=== PATIENT | female | born 1960 | race Caucasian/White ===

== ENCOUNTER 2017-06-07 16:50 | Emergency (ER) | payer MEDICARE, MEDICAID ==
[2017-06-07] MEDS ORDERED: cloNIDine 0.1 MG Tab PO ONE ×2 (16:54→17:28)
[2017-06-07] MEDS ORDERED: Ketorolac 60 MG/2 ML SDV IM ONE (17:28)
[2017-06-07] MEDS ORDERED: Ibuprofen 600 MG Tab PO ONE (17:42)
--- NOTE | 2017-06-07 19:46 | EDM.PDOC ---
ED HPI GENERAL MEDICAL PROBLEM - General Chief Complaint: Genitourinary Problem Stated Complaint: PASSED KIDNEY STONES AND NOT FEELING GOOD SI Time Seen by Provider: 06/07/17 17:00 Source of Information: Reports: Patient, Family History Limitations: Reports: No Limitations - History of Present Illness INITIAL COMMENTS - FREE TEXT/NARRATIVE: 56 years old w f -smoker-came to the ed because of low back pain and "not feeling right" Her BP was 177/101 on arrival. Pt did not take meds for 6 months because she moved to this area and did not find a PMD yet. No trauma. No N/V/D or dizziness or any other acute medical issues. Pt took lisinopril (dose) 6 months ago. Onset: Unknown/Unsure Onset Date: 05/23/17 Onset Time: 07:00 Duration: Week(s): Location: Reports: Back, Generalized Quality: Reports: Ache, Dull, Same as Previous Episode Improves with: Reports: Cold Therapy, Medication, Rest Worsens with: Reports: Movement Context: Reports: Lifting Associated Symptoms: Reports: No Other Symptoms Left Flank Pain Score (Numeric/FACES): 8 - Related Data Allergies Allergy/AdvReac Type Severity Reaction Status Date / Time Iodone Allergy Hives Uncoded 06/07/17 19:01 morphine Allergy Other Uncoded 06/07/17 19:01 Home Meds: Home Meds cloNIDine HCl [Clonidine HCl ER] 0.1 mg PO DAILY #10 tab.er.12h 06/07/17 [Rx] Past Medical History Cardiovascular History: Reports: Other (See Below) Other Cardiovascular History: Experiences chest pain on and off. Respiratory History: Reports: Other (See Below) Other Respiratory History: Long time smoker. Gastrointestinal History: Reports: Cirrhosis, Other (See Below) Other Gastrointestinal History: Has REN (non-alcoholic cirrhosis). Genitourinary History: Reports: Other (See Below) Other Genitourinary History: Has had kidney stones, and reconstructive surgery. 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 Psychiatric History: Reports: Anxiety, Other (See Below) Other Psychiatric History: On medications. Endocrine/Metabolic History: Reports: Diabetes, Type II Social & Family History - Tobacco Use Smoking Status *Q: Current Every Day Smoker Years of Tobacco use: 40 Packs/Tins Daily: 1 Used Tobacco, but Quit: No Second Hand Smoke Exposure: Yes - Caffeine Use Caffeine Use: Reports: Coffee - Recreational Drug Use Recreational Drug Use: No ED ROS GENERAL - Review of Systems Review Of Systems: See Below Constitutional: Reports: Other (not feeling "right") HEENT: Reports: No Symptoms Respiratory: Reports: No Symptoms, Shortness of Breath Cardiovascular: Reports: No Symptoms Endocrine: Reports: No Symptoms GI/Abdominal: Reports: No Symptoms : Reports: Dysuria Musculoskeletal: Reports: Back Pain Skin: Reports: No Symptoms Neurological: Reports: No Symptoms Psychiatric: Reports: No Symptoms Hematologic/Lymphatic: Reports: No Symptoms Immunologic: Reports: No Symptoms ED EXAM, RENAL/ - Physical Exam Exam: See Below Exam Limited By: No Limitations General Appearance: Alert, WD/WN, Mild Distress, Obese Eye Exam: Bilateral Eye: Normal Inspection Ears: Normal External Exam Nose: Normal Inspection, Normal Mucosa Throat/Mouth: Normal Inspection, Normal Lips Head: Atraumatic, Normocephalic Neck: Normal Inspection, Supple, Non-Tender Respiratory/Chest: No Respiratory Distress, Lungs Clear, Normal Breath Sounds Cardiovascular: Normal Peripheral Pulses, Regular Rate, Rhythm, No Edema GI/Abdominal: Normal Bowel Sounds, Soft, Non-Tender, No Organomegaly (Female) Exam: Deferred Rectal (Female) Exam: Deferred Back Exam: Normal Inspection, Full Range of Motion, Muscle Spasm Extremities: Normal Inspection, Normal Range of Motion, Non-Tender, No Pedal Edema Neurological: Alert, Oriented, CN II-XII Intact, Normal Cognition, Normal Gait Psychiatric: Normal Affect, Normal Mood Skin Exam: Warm, Dry, Intact, Normal Color, No Rash Lymphatic: No Adenopathy Course - Vital Signs Text/Narrative:: 56 years old w f -smoker-came to the ed because of low back pain and "not feeling right" Her BP was 177/101, pulse 115 on arrival. Pt did not take meds for 6 months because she moved to this area and did not find a PMD yet. No trauma. No N/V/D or dizziness or any other acute medical issues. PE: Obese 57 y.o.w.f. with back pain (parasinal) , no flank pain. Labs: CBC, BMP and UA nl Imaging: Not indicated. Impression: HTN, Noncompliance, low back pain. Tx: Clonididne, Ice to lower back, Toradol I.V Reexam: Improved BP was 133 /97b on D/C, pt felt better PlaN: D/C with instructions. Last Recorded V/S: Last Vital Signs Temp 36.6 C 06/07/17 19:00 Pulse 80 06/07/17 19:40 Resp 18 06/07/17 19:40 BP 126/70 06/07/17 19:40 Pulse Ox 96 06/07/17 19:40 - Orders/Labs/Meds Orders: Active Orders 24 hr Category Date Time Status Cooling Warming Measures [RC] ASDIRECTED Care 06/07/17 17:29 Active Ice Bag [Ice Therapy] [OM.PC] Routine Oth 06/07/17 17:29 Ordered Ice Bag [Ice Therapy] [OM.PC] Routine Oth 06/07/17 18:11 Ordered Labs: Laboratory Tests 06/07/17 06/07/17 06/07/17 Range/Units 17:00 17:17 18:15 WBC 10.2 (4.5-12.0) X10-3/uL RBC 4.82 (3.23-5.20) x10(6)uL Hgb 14.1 (11.5-15.5) g/dL Hct 43.1 (30.0-51.3) % MCV 89.3 (80-96) fL MCH 29.2 (27.7-33.6) pg MCHC 32.7 (32.2-35.4) g/dL RDW 12.1 (11.5-15.5) % Plt Count 300 (125-369) X10(3)uL MPV 8.1 (7.4-10.4) fL Neut % (Auto) 58.6 (46-82) % Lymph % (Auto) 31.8 (13-37) % [place] % (Auto) 6.4 (4-12) % Eos % (Auto) 3 (1.0-5.0) % Baso % (Auto) 1 (0-2) % Neut # (Auto) 5.9 (1.6-8.3) # Lymph # (Auto) 3.2 (0.6-5.0) # [place] # (Auto) 0.7 (0.0-1.3) # Eos # (Auto) 0.3 (0.0-0.8) # Baso # (Auto) 0.1 (0.0-0.2) # PT (8.7-11.1) INR (0.89-1.13) Sodium (135-145) mmol/L Potassium (3.5-5.3) mmol/L Chloride (100-110) mmol/L Carbon Dioxide (23-29) mmol/L BUN (5-20) mg/dL Creatinine (0.6-1.3) mg/dL Est Cr Clr Drug Dosing Estimated GFR (MDRD) (>60) BUN/Creatinine Ratio (9-20) Glucose (80-116) mg/dL POC Glucose 177 H (80-116) mg/dL Calcium (8.6-10.2) mg/dL Urine Color Yellow (YELLOW) Urine Appearance Clear (CLEAR) Urine pH 6.0 (5.0-6.5) Ur Specific [place] 1.010 (1.010-1.025) Urine Protein Negative (NEGATIVE) mg/dL Urine Glucose (UA) Normal (NEGATIVE) mg/dL Urine Ketones Negative (NEGATIVE) mg/dL Urine Occult Blood Negative (NEGATIVE) Urine Nitrite Negative (NEGATIVE) Urine Bilirubin Negative (NEGATIVE) Urine Urobilinogen Normal (NEGATIVE) mg/dL Ur Leukocyte Esterase Negative (NEGATIVE) Urine RBC 0-5 (0) Urine WBC 0-5 (0) Ur Squamous Epith Cells Few H (NS,R,O) Urine Bacteria Few H (NS) 06/07/17 06/07/17 Range/Units 18:15 18:15 WBC (4.5-12.0) X10-3/uL RBC (3.23-5.20) x10(6)uL Hgb (11.5-15.5) g/dL Hct (30.0-51.3) % MCV (80-96) fL MCH (27.7-33.6) pg MCHC (32.2-35.4) g/dL RDW (11.5-15.5) % Plt Count (125-369) X10(3)uL MPV (7.4-10.4) fL Neut % (Auto) (46-82) % Lymph % (Auto) (13-37) % [place] % (Auto) (4-12) % Eos % (Auto) (1.0-5.0) % Baso % (Auto) (0-2) % Neut # (Auto) (1.6-8.3) # Lymph # (Auto) (0.6-5.0) # [place] # (Auto) (0.0-1.3) # Eos # (Auto) (0.0-0.8) # Baso # (Auto) (0.0-0.2) # PT 10.2 (8.7-11.1) INR 1.01 (0.89-1.13) Sodium 137 (135-145) mmol/L Potassium 4.0 (3.5-5.3) mmol/L Chloride 102 (100-110) mmol/L Carbon Dioxide 26 (23-29) mmol/L BUN 12 (5-20) mg/dL Creatinine 0.7 (0.6-1.3) mg/dL Est Cr Clr Drug Dosing TNP Estimated GFR (MDRD) > 60 (>60) BUN/Creatinine Ratio 17.1 (9-20) Glucose 179 H (80-116) mg/dL POC Glucose (80-116) mg/dL Calcium 9.2 (8.6-10.2) mg/dL Urine Color (YELLOW) Urine Appearance (CLEAR) Urine pH (5.0-6.5) Ur Specific [place] (1.010-1.025) Urine Protein (NEGATIVE) mg/dL Urine Glucose (UA) (NEGATIVE) mg/dL Urine Ketones (NEGATIVE) mg/dL Urine Occult Blood (NEGATIVE) Urine Nitrite (NEGATIVE) Urine Bilirubin (NEGATIVE) Urine Urobilinogen (NEGATIVE) mg/dL Ur Leukocyte Esterase (NEGATIVE) Urine RBC (0) Urine WBC (0) Ur Squamous Epith Cells (NS,R,O) Urine Bacteria (NS) Meds: Medications Discontinued Medications Generic Name Dose Route Start Last Admin Trade Name Freq PRN Reason Stop Dose Admin Clonidine HCl 0.1 mg 06/07/17 17:28 06/07/17 17:43 Catapres PO 06/07/17 17:29 0.1 mg ONETIME ONE Administration Clonidine HCl Confirm 06/07/17 19:48 Catapres Administered 06/07/17 19:49 Dose 0.1 mg .ROUTE .STK-MED ONE Ibuprofen 600 mg 06/07/17 17:42 06/07/17 17:45 Motrin PO 06/07/17 17:43 600 mg ONETIME ONE Administration Ketorolac Tromethamine 60 mg 06/07/17 17:28 06/07/17 18:20 Toradol IM 06/07/17 17:29 60 mg ONETIME ONE Administration Departure - Departure Time of Disposition: 19:41 Disposition: Home, Self-Care 01 Condition: Good Clinical Impression: HTN, goal below 130/80 Low back pain Qualifiers: Chronicity: unspecified Back pain laterality: bilateral Sciatica presence: without sciatica Qualified Code(s): M54.5 - Low back pain - Discharge Information Prescriptions: cloNIDine HCl [Clonidine HCl ER] 0.1 mg PO DAILY #10 tab.er.12h Instructions: Hypertension Referrals: PCP,None [Primary Care Provider] - Forms: ED Department Discharge Additional Instructions: Please take the meds as recommended, Ice to lower back, Motrin for back pain, please f/u, come back if your symptoms get worse acutely - My Orders Last 24 Hours: My Active Orders 06/07/17 17:29 Cooling Warming Measures [RC] ASDIRECTED Ice Bag [Ice Therapy] [OM.PC] Routine 06/07/17 18:11 Ice Bag [Ice Therapy] [OM.PC] Routine - Assessment/Plan Last 24 Hours: My Active Orders 06/07/17 17:29 Cooling Warming Measures [RC] ASDIRECTED Ice Bag [Ice Therapy] [OM.PC] Routine 06/07/17 18:11 Ice Bag [Ice Therapy] [OM.PC] Routine
[2017-06-07] MEDS ORDERED: cloNIDine 0.1 MG Tab ONE (19:48)
[2017-06-07 19:56] VITALS: BP 126/70
== END 2017-06-07 19:50 | disposition home or self-care (01) ==
LOC: FB.ED 16:53
DX: I10 Essential (primary) hypertension (principal); M54.5 Low back pain; F41.9 Anxiety disorder, unspecified; E11.9 Type 2 diabetes mellitus without complications; F17.210 Nicotine dependence, cigarettes, uncomplicated; Z88.5 Allergy status to narcotic agent; K74.69 Other cirrhosis of liver
CPT/HCPCS: 36415; 80048; 81001; 82962; 85025; 85610; 96372; 99283; A9270; J1885

== ENCOUNTER 2020-03-02 16:09 | Emergency (ER) | payer MEDICAID, MEDICARE ==
[2020-03-02] MEDS ORDERED: Fluconazole 150 MG Tab PO ONE (17:15)
[2020-03-02] MEDS ORDERED: Sulfamethoxazole/Trimethoprim 800-160 MG Tab PO STA (17:15)
--- NOTE | 2020-03-02 17:21 | EDM.PDOC ---
ED HPI GENERAL MEDICAL PROBLEM - General Chief Complaint: Genitourinary Problem Stated Complaint: POSSIBLE UTI Time Seen by Provider: 03/02/20 16:50 Source of Information: Reports: Patient History Limitations: Reports: No Limitations - History of Present Illness INITIAL COMMENTS - FREE TEXT/NARRATIVE: Patient presented to the ED because of dysuria x 1 month and a curdy white discharge. She denies having any fever or chills, no flank pain, N/V. Bladder Pain Score (Numeric/FACES): 4 - Related Data Allergies Allergy/AdvReac Type Severity Reaction Status Date / Time Iodone Allergy Hives Uncoded 06/07/17 19:01 morphine Allergy Other Uncoded 06/07/17 19:01 Home Meds: Home Meds Fluconazole [Diflucan] 150 mg PO ONETIME #1 tab 03/02/20 [Rx] Sulfamethoxazole/Trimethoprim [Bactrim Ds Tablet] 1 each PO BID #6 tablet [Rx] Past Medical History Cardiovascular History: Reports: Other (See Below) Other Cardiovascular History: Experiences chest pain on and off. Respiratory History: Reports: Other (See Below) Other Respiratory History: Long time smoker. Gastrointestinal History: Reports: Cirrhosis, Other (See Below) Other Gastrointestinal History: Has REN (non-alcoholic cirrhosis). Genitourinary History: Reports: Other (See Below) Other Genitourinary History: Has had kidney stones, and reconstructive surgery. 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 Psychiatric History: Reports: Anxiety, Other (See Below) Other Psychiatric History: On medications. Endocrine/Metabolic History: Reports: Diabetes, Type II Social & Family History - Caffeine Use Caffeine Use: Reports: Coffee ED ROS GENERAL - Review of Systems Review Of Systems: See Below Constitutional: Reports: No Symptoms HEENT: Reports: No Symptoms Respiratory: Reports: No Symptoms Cardiovascular: Reports: No Symptoms Endocrine: Reports: No Symptoms GI/Abdominal: Reports: No Symptoms : Reports: No Symptoms Musculoskeletal: Reports: No Symptoms ED EXAM, RENAL/ - Physical Exam Exam: See Below Exam Limited By: No Limitations General Appearance: Alert, No Apparent Distress Ears: Normal External Exam, Normal Canal, Hearing Grossly Normal Nose: Normal Inspection, Normal Mucosa, No Blood Throat/Mouth: Normal Inspection, Normal Lips, Normal Teeth Head: Atraumatic, Normocephalic Neck: Normal Inspection, Supple, Non-Tender, Full Range of Motion Respiratory/Chest: No Respiratory Distress, Lungs Clear, Normal Breath Sounds Cardiovascular: Normal Peripheral Pulses, Regular Rate, Rhythm, No Edema, No Gallop GI/Abdominal: Normal Bowel Sounds, Soft, Non-Tender, No Organomegaly Back Exam: Normal Inspection, Full Range of Motion. No: CVA Tenderness (R) Course - Vital Signs Text/Narrative:: UA-neg but patient is sypmtomatic Bactrim DS 1 PO x1 diflucan 200 mg PO x1 Last Recorded V/S: Last Vital Signs Temp 36.8 C 03/02/20 16:47 Pulse 110 H 03/02/20 17:50 Resp 18 03/02/20 17:50 BP 171/96 H 03/02/20 17:50 Pulse Ox 96 03/02/20 17:50 - Orders/Labs/Meds Labs: Laboratory Tests 03/02/20 Range/Units 16:20 Urine Color Yellow (YELLOW) Urine Appearance Clear (CLEAR) Urine pH 5.0 (5.0-6.5) Ur Specific [place] 1.015 (1.010-1.025) Urine Protein Negative (NEGATIVE) mg/dL Urine Glucose (UA) >1000 H (NORMAL) mg/dL Urine Ketones Negative (NEGATIVE) mg/dL Urine Occult Blood Negative (NEGATIVE) Urine Nitrite Negative (NEGATIVE) Urine Bilirubin Negative (NEGATIVE) Urine Urobilinogen Normal (NEGATIVE) mg/dL Ur Leukocyte Esterase Negative (NEGATIVE) Urine RBC Not seen (0-5) Urine WBC 0-5 (0-5) Ur Squamous Epith Cells Few H (NS,R,O) Urine Bacteria Few H (NS) Meds: Medications Discontinued Medications Generic Name Dose Route Start Last Admin Trade Name Freq PRN Reason Stop Dose Admin Fluconazole 150 mg 03/02/20 17:15 Diflucan PO 03/02/20 17:16 ONETIME ONE Fluconazole 200 mg 03/02/20 17:51 03/02/20 17:55 Diflucan PO 03/02/20 17:52 200 mg NOW STA Administration Trimethoprim/Sulfamethoxazole 1 tab 03/02/20 17:15 03/02/20 17:55 Septra Ds PO 03/02/20 17:16 1 tab NOW STA Administration Departure - Departure Time of Disposition: 17:25 Disposition: Home, Self-Care 01 Condition: Good Clinical Impression: UTI (urinary tract infection), Yeast vaginitis - Discharge Information Prescriptions: Fluconazole [Diflucan] 150 mg PO ONETIME #1 tab Sulfamethoxazole/Trimethoprim [Bactrim Ds Tablet] 1 each PO BID #6 tablet Instructions: Vaginal Yeast Infection, Adult, Urinary Tract Infection, Adult, [id number] Referrals: PCP,None [Primary Care Provider] - Forms: ED Department Discharge Additional Instructions: please read discharge instructions on UTI and yeast vaginitis increase oral fluids diflucan 150 mg when you take the last dose of your antibiotic for UTI which is 4 days from now(03/05) Bactrim DS take 1 tablet twice daily for 3 days follow up as needed Sepsis Event Note - Evaluation Sepsis Screening Result: No Definite Risk - Focused Exam Date Exam was Performed: 03/03/20 Time Exam was Performed: 07:20
[2020-03-02] MEDS ORDERED: Fluconazole 100 MG Tab PO STA (17:51)
[2020-03-02 19:13] VITALS: BP 171/96; PULSE 110
== END 2020-03-02 17:55 | disposition home or self-care (01) ==
LOC: FB.ED 16:09
DX: N39.0 Urinary tract infection, site not specified (principal); B37.3 Candidiasis of vulva and vagina; Z91.09 Other allergy status, other than to drugs and biological substances; Z88.5 Allergy status to narcotic agent; E11.9 Type 2 diabetes mellitus without complications
CPT/HCPCS: 81001; 99283; A9270

== ENCOUNTER 2022-05-01 21:29 | Emergency (ER) | payer MEDICARE ==
[2022-05-01] MEDS ORDERED: traMADol 50 MG Tab PO ONE (21:30)
[2022-05-01] MEDS ORDERED: Ibuprofen 600 MG Tab PO STA (21:57)
[2022-05-01] MEDS ORDERED: Acetaminophen 500 MG Tab PO STA (21:57)
[2022-05-01 22:19] VITALS: BP 137/70; PULSE 102
== END 2022-05-01 22:45 | disposition home or self-care (01) ==
LOC: FB.ED 21:29
DX: S52.572A Other intraarticular fracture of lower end of left radius, initial encounter for closed fracture (principal); E11.9 Type 2 diabetes mellitus without complications; F17.210 Nicotine dependence, cigarettes, uncomplicated; Z88.5 Allergy status to narcotic agent; W01.0XXA Fall on same level from slipping, tripping and stumbling without subsequent striking against object, initial encounter
CPT/HCPCS: 73110; 73130; 99281; 99283; A9270